=== PATIENT | female | born 1965 | race Caucasian/White ===

== ENCOUNTER 2018-09-27 04:07 | Emergency (ER) | payer OTHER ==
[~2018-09-27] VITALS: Ht 167.6 cm; Wt 90.4 kg
[2018-09-27] MEDS ORDERED: HYDROmorphone 2 MG/ML, 1ML ONE (04:57)
[2018-09-27] MEDS ORDERED: ONDANSETRON ODT 4 MG ONE (04:57)
[2018-09-27] MEDS ORDERED: KETOROLAC 30 MG/1 ML ONE (04:57)
[2018-09-27] MEDS ORDERED: ONDANSETRON ODT 4 MG PO ONE (05:00)
[2018-09-27] MEDS ORDERED: HYDROmorphone 1 MG/ML, 1ML IM ONE (05:00)
[2018-09-27] MEDS ORDERED: KETOROLAC 30 MG/1 ML IM ONE (05:00)
[2018-09-27 05:05] LABS: MICROSCOPIC INDICATED
[2018-09-27 05:12] LABS: CULTURE INDICATED? NO
[2018-09-27 05:32] LABS: BASOPHILS # (AUTO) 0.08 x10^3/uL (0-0.1); BASOPHILS % (AUTO) 1 % (0-1); EOSINOPHILS # (AUTO) 0.37 x10^3/uL (0-0.4); EOSINOPHILS % (AUTO) 5 % (1-7); LYMPHOCYTES # (AUTO) 1.98 x10^3/uL (1-3.4); LYMPHOCYTES % (AUTO) 28 % (22-44); MD NO; MEAN CORPUSCULAR VOLUME 94.2 fL (80-100); MEAN PLATELET VOLUME 8.1 fL (7.4-10.4); MONOCYTES # (AUTO) 0.54 x10^3/uL (0.2-0.8); MONOCYTES % (AUTO) 8 % (2-9); NEUTROPHILS # (AUTO) 4.13 x10^3/uL (1.8-6.8); NEUTROPHILS % (AUTO) 58 % (42-75); PLATELET COUNT 302 x10^3/uL (130-400); RED BLOOD COUNT 4.63 x10^6/uL (3.82-5.3); RED CELL DISTRIBUTION WIDTH 12.6 % (9.6-15.2)
[2018-09-27 05:35] VITALS: BP 124/71
[2018-09-27 05:35] LABS: ALBUMIN 3.7 g/dL (3.4-5.0); ANION GAP 9 mmol/L (5-15); CALCIUM 8.6 mg/dL (8.5-10.1); CHLORIDE 109 mmol/L (98-107); CREATININE 0.94 mg/dL (0.55-1.02)
== END 2018-09-27 06:19 | disposition home or self-care (01) ==
LOC: ED 05:47
DX: R10.9 Unspecified abdominal pain (principal); M54.5 Low back pain
CPT/HCPCS: 36415; 74176; 80048; 81001; 82040; 83690; 85025; 96372; 99285; J1170; J1885; Q0162

== ENCOUNTER 2018-10-13 13:47 | Emergency (ER) | payer OTHER ==
[~2018-10-13] VITALS: Ht 167.6 cm; Wt 89.4 kg
[2018-10-13] MEDS ORDERED: LEVO125T PO (14:55)
[2018-10-13] MEDS ORDERED: DULO60CA7 PO (14:56)
[2018-10-13] MEDS ORDERED: TRAZ-137 PO (14:56)
[2018-10-13] MEDS ORDERED: ASPI-496 PO (14:57)
[2018-10-13] MEDS ORDERED: OMEG100023 PO (14:58)
[2018-10-13] MEDS ORDERED: VIT1CAPS16 PO (14:58)
[2018-10-13] MEDS ORDERED: MULT-252 PO (15:00)
[2018-10-13] MEDS ORDERED: SODIUM CHLORIDE 0.9% 1,000ML IVBOLUS ONE (15:30)
[2018-10-13] MEDS ORDERED: METOCLOPRAMIDE 5 MG/ML, 2ML IVPush ONE (15:30)
[2018-10-13] MEDS ORDERED: DIPHENHYDRAMINE 50 MG/ML, 1ML IVPush ONE (15:30)
[2018-10-13] MEDS ORDERED: METOCLOPRAMIDE 5 MG/ML, 2ML ONE (15:32)
[2018-10-13] MEDS ORDERED: DIPHENHYDRAMINE 50 MG/ML, 1ML ONE (15:32)
[2018-10-13] MEDS ORDERED: SUMATRIPTAN 6MG/0.5ML SQ ONE ×2 (17:25→17:30)
[2018-10-13] MEDS ORDERED: KETOROLAC 30 MG/1 ML ONE (17:25)
[2018-10-13] MEDS ORDERED: MORPHINE SULFATE 4 MG/ML, 1ML ONE (17:27)
[2018-10-13] MEDS ORDERED: MORPHINE SULFATE 4 MG/ML, 1ML IVPush ONE (17:30)
[2018-10-13] MEDS ORDERED: KETOROLAC 60 MG/2 ML IVPush ONE (17:30)
[2018-10-13 18:25] VITALS: BP 144/88
== END 2018-10-13 18:28 ==
LOC: ED 16:22
DX: G43.009 Migraine without aura, not intractable, without status migrainosus (principal)
CPT/HCPCS: 70450; 96361; 96372; 96374; 96375; 99285; J1200; J1885; J2765; J3030; J7030

== ENCOUNTER 2018-12-28 12:47 | Day surgery (SDC) | payer OTHER ==
[~2018-12-28] VITALS: Ht 167.6 cm; Wt 90.0 kg
[~2018-12-28 12:47] MED LIST: ASPI-496 PO; DULO60CA7 PO; LEVO125T PO; MULT-252 PO; OMEG100023 PO; TRAZ-137 PO; VIT1CAPS16 PO
[2018-12-28 13:21] VITALS: BP 132/82
[2018-12-28] MEDS ORDERED: LACTATED RINGERS 1,000 ML IV SCH (13:23)
[2018-12-28 13:38] VITALS: BP 132/82
[2018-12-28] MEDS ORDERED: PLEASE ENTER HEIGHT AND WEIGHT MC SCH (14:00)
[2018-12-28] MEDS ORDERED: BUPIVACAINE/PF-EPI 0.5% 1:200K ONE (16:03)
[2018-12-28] MEDS ORDERED: FENTANYL PF 250 MCG/5ML ONE (16:13)
[2018-12-28] MEDS ORDERED: MIDAZOLAM 1 MG/ML, 2ML ONE (16:13)
[2018-12-28] MEDS ORDERED: CEFAZOLIN 1,000 MG ONE (16:14)
[2018-12-28] MEDS ORDERED: KETOROLAC 30 MG/1 ML ONE (16:14)
[2018-12-28] MEDS ORDERED: DEXAMETHASONE 4 MG/ML, 1ML ONE (16:14)
[2018-12-28] MEDS ORDERED: ONDANSETRON 2MG/ML, 2ML ONE (16:14)
[2018-12-28] MEDS ORDERED: PROPOFOL 50 ML ONE (16:17)
[2018-12-28] MEDS ORDERED: DIPHENHYDRAMINE 50 MG/ML, 1ML IVPush PRN (16:30)
[2018-12-28] MEDS ORDERED: MEPERIDINE/PF 25MG/0.5ML IVPush PRN (16:30)
[2018-12-28] MEDS ORDERED: EPHEDRINE 50 MG/ML, 1ML IVPush PRN (16:30)
[2018-12-28] MEDS ORDERED: DEXAMETHASONE 4 MG/ML, 1ML IV PRN (16:30)
[2018-12-28] MEDS ORDERED: ONDANSETRON ODT 8 MG PO PRN (16:30)
[2018-12-28] MEDS ORDERED: PROMETHAZINE 12.5 MG SUPP PR PRN (16:30)
[2018-12-28] MEDS ORDERED: MORPHINE SULFATE 4 MG/ML, 1ML IVPush PRN ×2 (16:30→19:00)
[2018-12-28] MEDS ORDERED: PROMETHAZINE 25 MG/ML, 1ML IV PRN (16:30)
[2018-12-28] MEDS ORDERED: MIDAZOLAM 1 MG/ML, 2ML IV PRN (16:30)
[2018-12-28] MEDS ORDERED: ONDANSETRON 2MG/ML, 2ML IV PRN (16:30)
[2018-12-28] MEDS ORDERED: EPHEDRINE 50 MG/ML, 1ML IM PRN (16:30)
[2018-12-28] MEDS ORDERED: ACETAMINOPHEN 325 MG TABLET PO PRN (16:30)
[2018-12-28] MEDS ORDERED: PROMETHAZINE 25 MG SUPP PR PRN (16:30)
[2018-12-28] MEDS ORDERED: OXYcodone 5 MG/5 ML ORAL.SOL UDC PO PRN (16:30)
[2018-12-28] MEDS ORDERED: FENTANYL PF 100 MCG/2ML ONE ×2 (17:24→17:56)
[2018-12-28] MEDS ORDERED: ACETAMINOPHEN 650 MG/20.3 ML UDC ONE (17:24)
[2018-12-28] MEDS ORDERED: OXYcodone 5 MG/5 ML ORAL.SOL UDC ONE (17:24)
[2018-12-28] MEDS: FENTANYL PF 100 MCG/2ML IV PRN ×4 (17:26→18:15)
[2018-12-28] MEDS ORDERED: HYDROmorphone 2 MG/ML, 1ML ONE (17:31)
[2018-12-28] MEDS: HYDROmorphone 2 MG/ML, 1ML IVPush PRN ×4 (17:32→17:52)
[2018-12-28] MEDS ORDERED: OXYcodone/APAP 5/325MG TABLET PO PRN (19:00)
[2018-12-28] MEDS ORDERED: ONDANSETRON 2MG/ML, 2ML IVPush PRN (19:00)
== END 2018-12-28 20:25 | disposition home or self-care (01) ==
LOC: OUT 12:47 → 4NOR 18:41 → OUT 20:25
PROVIDERS: ATTEND Surgery
DX: R59.1 Generalized enlarged lymph nodes (principal); E65 Localized adiposity; E03.9 Hypothyroidism, unspecified; G89.29 Other chronic pain; Z90.710 Acquired absence of both cervix and uterus; Z98.890 Other specified postprocedural states
CPT/HCPCS: 21552; 88305; 88312; J0690; J1100; J1170; J1885; J2250; J2405; J2704; J3010; J7120; G0378

== ENCOUNTER → 2019-03-25 | Outpatient (CLI) | payer OTHER | END | disposition home or self-care (01) | LOC: CFH 08:18 | PROVIDERS: ATTEND Psychiatry & Neurology Neurology | DX: D86.9 Sarcoidosis, unspecified (principal); I37.1 Nonrheumatic pulmonary valve insufficiency; R55 Syncope and collapse; Z87.891 Personal history of nicotine dependence | CPT/HCPCS: 70450; 93306 ==

== ENCOUNTER → 2019-04-05 | Outpatient (CLI) | payer OTHER | END | disposition home or self-care (01) | LOC: CFH 09:14 | PROVIDERS: ATTEND Family Medicine | DX: D86.9 Sarcoidosis, unspecified (principal); R55 Syncope and collapse | CPT/HCPCS: 71250 ==

== ENCOUNTER → 2019-12-26 | Outpatient (CLI) | payer OTHER ==
[~2019-12-26] MED LIST changes: +OMNIPAQUE 350 MG/ML, 75ML BOTTLE ONE
== END | disposition home or self-care (01) ==
LOC: CFH 09:57
PROVIDERS: ATTEND Internal Medicine
DX: D86.9 Sarcoidosis, unspecified (principal)
CPT/HCPCS: 71260; Q9967

== ENCOUNTER 2020-03-03 14:07 | Emergency (ER) | payer OTHER, MEDICARE ==
[~2020-03-03] VITALS: Ht 167.6 cm; Wt 93.6 kg
[~2020-03-03 14:07] MED LIST changes: -OMNIPAQUE 350 MG/ML, 75ML BOTTLE ONE; -TRAZ-137 PO; +TRAZ-175 PO
--- NOTE | 2020-03-03 14:33 | NUR ---
PT AMB TO BR AND BACK TO ROOM WITH STEADY GAIT.
--- NOTE | 2020-03-03 14:33 | NUR ---
FIRST CONTACT WITH PT. PT C/O ASH AND FEVER X3 DAYS, COUGH, NAUSEA, LUNGS ARE BURNING. PT'S AOX4. RESPS EVEN AND UNLABORED. BP/SPO2 MONITORS IN PLACE. CALL LIGHT WITHIN REACH. PA AT BEDSIDE TO EVALUATE AT THIS TIME.
--- NOTE | 2020-03-03 14:34 | NUR ---
XRAY IN ROOM AT THIS TIME.
--- NOTE | 2020-03-03 14:53 | NUR ---
EKG DONE AT BEDSIDE BY EMT.
--- NOTE | 2020-03-03 15:16 | NUR ---
PT REQUESTING PAIN MED FOR ASH. PA NOTIFIED.
[2020-03-03] MEDS ORDERED: ACETAMINOPHEN 500 MG TABLET ONE (15:24)
[2020-03-03 15:26] VITALS: BP 127/89
--- NOTE | 2020-03-03 15:26 | NUR ---
PT MEDICATED PER EMAR. PT TOLERATED WELL.
[2020-03-03] MEDS ORDERED: ACETAMINOPHEN 500 MG TABLET PO ONE (15:30)
--- NOTE | 2020-03-03 15:41 | NUR ---
Patient given discharge instructions and they have confirmed that they understand the instructions. Patient ambulatory with steady gait.
== END 2020-03-03 15:42 | disposition home or self-care (01) ==
LOC: ED 15:17
DX: B34.9 Viral infection, unspecified (principal); Z20.828 Contact with and (suspected) exposure to other viral communicable diseases; E03.9 Hypothyroidism, unspecified; I51.7 Cardiomegaly; R06.02 Shortness of breath
CPT/HCPCS: 71045; 93005; 99285

== ENCOUNTER 2020-08-12 16:55 | Emergency (ER) | payer OTHER, MEDICARE ==
[~2020-08-12] VITALS: Ht 167.6 cm; Wt 94.2 kg
--- NOTE | 2020-08-12 17:14 | NUR ---
THIS TECH DID EKG
--- NOTE | 2020-08-12 18:04 | NUR ---
PT MEDICATED PER THE JAN. PULSE OX PLACED ON CONTINOUS MONITORING. AWAITING FURTHER ORDERS.
--- NOTE | 2020-08-12 18:05 | NUR ---
CURRENT PULSE OX ON RA 94%
[2020-08-12 18:23] LABS: ALBUMIN 3.5 g/dL (3.4-5.0); ANION GAP 8 mmol/L (5-15); CALCIUM 8.8 mg/dL (8.5-10.1); CHLORIDE 111 mmol/L (98-107)
[2020-08-12 18:28] LABS: ALANINE AMINOTRANSFERASE 79 U/L (12-78); ALKALINE PHOSPHATASE 80 U/L (45-117); BILIRUBIN,TOTAL 0.4 mg/dL (0.2-1.0); C-REACTIVE PROTEIN, QUANT 0.78 mg/dL (0.02-0.49)
[2020-08-12 18:39] LABS: BASOPHILS # (AUTO) 0.03 x10^3/uL (0-0.1); BASOPHILS % (AUTO) 0 % (0-1); EOSINOPHILS # (AUTO) 0.33 x10^3/uL (0-0.4); EOSINOPHILS % (AUTO) 3 % (1-7); LYMPHOCYTES # (AUTO) 1.43 x10^3/uL (1-3.4); LYMPHOCYTES % (AUTO) 15 % (22-44); MD NO; MEAN CORPUSCULAR HEMOGLOBIN 32.8 pg (27.0-34.8); MEAN CORPUSCULAR HGB CONC 33.6 g/dL (32.4-35.8); MEAN CORPUSCULAR VOLUME 97.6 fL (80-100); MEAN PLATELET VOLUME 8.5 fL (7.4-10.4); MONOCYTES # (AUTO) 0.82 x10^3/uL (0.2-0.8); MONOCYTES % (AUTO) 8 % (2-9); NEUTROPHILS # (AUTO) 7.22 x10^3/uL (1.8-6.8); NEUTROPHILS % (AUTO) 74 % (42-75); PLATELET COUNT 268 x10^3/uL (130-400); RED BLOOD COUNT 4.35 x10^6/uL (3.82-5.3); RED CELL DISTRIBUTION WIDTH 12.5 % (9.6-15.2)
--- NOTE | 2020-08-12 18:50 | NUR ---
HAND OFF GIVEN TO KAMI COOL.
[2020-08-12 18:59] VITALS: BP 135/78
--- NOTE | 2020-08-12 19:13 | NUR ---
Patient given discharge instructions and they have confirmed that they understand the instructions. Patient ambulatory with steady gait.
== END 2020-08-12 19:16 | disposition home or self-care (01) ==
LOC: ED 18:37
DX: B34.9 Viral infection, unspecified (principal); E03.9 Hypothyroidism, unspecified; R00.0 Tachycardia, unspecified; Z20.828 Contact with and (suspected) exposure to other viral communicable diseases; Z87.891 Personal history of nicotine dependence
CPT/HCPCS: 36415; 71045; 80053; 82728; 83615; 84145; 85025; 86140; 87635; 93005; 99285